=== PATIENT | female | born 1970 | race Caucasian/White ===

== ENCOUNTER 2018-03-29 10:33 | Emergency (ER) | payer MEDICAID ==
[~2018-03-29] VITALS: Ht 162.6 cm; Wt 78.6 kg
[2018-03-29 10:37] VITALS: BP 116/47
--- NOTE | 2018-03-29 10:40 | NUR ---
PT HERE FOR TEST. NORMAL PHYSICAL EXAM. PT INFORMED OF RESULTS. HCG URINE NEGATIVE. ER SECHRIST NOTIFIED.
--- NOTE | 2018-03-29 10:42 | NUR ---
Patient ambulated to bed 4 with family. RN evaluating patient at bedside.
--- NOTE | 2018-03-29 10:50 | NUR ---
Dr. Delacruz evaluating patient at bedside.
[2018-03-29 11:00] VITALS: BP 116/47
--- NOTE | 2018-03-29 11:00 | NUR ---
Patient discharged with v/s stable. Written and verbal after care instructions given and explained. Patient verbalized understanding. Ambulatory with steady gait. All questions addressed prior to discharge. Advised to follow up with PMD.
== END 2018-03-29 11:00 | disposition home or self-care (01) ==
LOC: MED 10:33
DX: Z32.02 Encounter for pregnancy test, result negative (principal); F17.210 Nicotine dependence, cigarettes, uncomplicated
CPT/HCPCS: 81025; 99282

== ENCOUNTER 2018-05-04 21:10 | Emergency (ER) | payer MEDICAID ==
[~2018-05-04] VITALS: Ht 165.1 cm; Wt 78.0 kg
[2018-05-04 21:19] VITALS: BP 139/76
[2018-05-04 22:39] LABS: BASOPHILS # (AUTO) 0.1 K/uL (0.00-0.22); BASOPHILS % (AUTO) 0.9 % (0.0-2.0); EOSINOPHILS # (AUTO) 0.6 K/uL (0-0.4); EOSINOPHILS % (AUTO) 7.8 % (0.0-4.0); HEMATOCRIT 41.9 % (36-48); HEMOGLOBIN 13.6 g/dL (12.0-16.0); LYMPHOCYTES % (AUTO) 36.7 % (20.5-51.1); MEAN CORPUSCULAR HEMOGLOBIN 29 pg (27-31); MEAN CORPUSCULAR HGB CONC 33 g/dL (33-37); MEAN CORPUSCULAR VOLUME 89.9 fL (80-94); MONOCYTES # (AUTO) 0.8 K/uL (0.8-1.0); MONOCYTES % (AUTO) 10.1 % (1.7-9.3); NEUTROPHILS # (AUTO) 3.7 K/uL (1.8-7.7); NEUTROPHILS % (AUTO) 44.5 % (42.2-75.2); PLATELET COUNT (AUTO) 293 K/uL (140-450); RED BLOOD CELL COUNT(AUTO) 4.66 MIL/uL (4.20-5.40); RED CELL DISTRIBUTION WIDTH 12.8 % (11.6-13.7); WHITE BLOOD COUNT (AUTO) 8.3 K/uL (4.8-10.8)
[2018-05-04 22:54] LABS: ANION GAP 7.3 (8-16); CARBON DIOXIDE 30.8 mmol/L (21-32); CREATININE 0.8 mg/dL (0.6-1.3); POTASSIUM 4.1 mmol/L (3.5-5.1)
[2018-05-04 22:54] LABS: BARBITURATE, URINE NEG. ng/ml (NEG <=200); BENZODIAZEPINE, URINE NEG. ng/mL (NEG <=200); CANNABINOID, URINE POS. ng/mL (NEG <=50); COCAINE, URINE NEG. ng/mL (NEG <=300); OPIATE, URINE NEG. ng/mL (NEG <=2000); PHENCYCLIDINE SCREEN,URINE NEG. ng/mL (NEG <=25)
[2018-05-04 22:58] LABS: ALBUMIN 3.3 g/dL (3.4-5.0); TOTAL BILIRUBIN 0.1 mg/dL (0.0-1.0)
[2018-05-05 01:13] VITALS: BP 109/55
== END 2018-05-05 01:12 | disposition home or self-care (01) ==
LOC: MED 21:10
DX: R07.9 Chest pain, unspecified (principal); I25.2 Old myocardial infarction; F12.10 Cannabis abuse, uncomplicated
CPT/HCPCS: 36415; 71045; 80053; 80305; 81025; 82550; 82553; 83690; 84484; 85025; 93005; 99285; Q0092

== ENCOUNTER 2018-11-17 05:55 | Emergency (ER) | payer MEDICAID ==
[~2018-11-17] VITALS: Ht 165.1 cm; Wt 81.6 kg
[2018-11-17 06:09] VITALS: BP 147/70
--- NOTE | 2018-11-17 06:10 | NUR ---
TO BED # 11 AMB, REPORT GIVEN TO CANDICE CARLSON
--- NOTE | 2018-11-17 06:10 | NUR ---
ASSUMED CARE OF PT AT THIS TIME. C/O COUGH/CONGESTION X 1 MONTH. NO RESPIRATORY DISTRESS NOTED...PT SPEAKS IN FULL SENTENCES. AAOX4 WITH EVEN AND STEADY GAIT; PATIENT STATES PAIN OF 7/10; VSS; PATIENT POSITIONED FOR COMFORT; HOB ELEVATED; BEDRAILS UP X2; BED DOWN. ER MD MADE AWARE OF PT STATUS. WILL CONTINUE TO MONITOR.
--- NOTE | 2018-11-17 06:22 | NUR ---
Dr. Lee evaluating patient at bedside.
[2018-11-17 06:30] VITALS: BP 147/70
--- NOTE | 2018-11-17 06:30 | NUR ---
Patient discharged with v/s stable. Written and verbal after care instructions given and explained. Patient alert, oriented and verbalized understanding of instructions. Ambulatory with steady gait. All questions addressed prior to discharge. ID band removed. Patient advised to follow up with PMD. Rx of CLARITIN given. Patient educated on indication of medication including possible reaction and side effects. Opportunity to ask questions provided and answered.
== END 2018-11-17 06:30 | disposition home or self-care (01) ==
LOC: MED 05:55
DX: J30.9 Allergic rhinitis, unspecified (principal); H10.10 Acute atopic conjunctivitis, unspecified eye
CPT/HCPCS: 99282

== ENCOUNTER 2019-01-15 04:05 | Emergency (ER) | payer MEDICAID ==
[~2019-01-15] VITALS: Ht 157.5 cm; Wt 75.0 kg
[2019-01-15 04:10] VITALS: BP 113/54
--- NOTE | 2019-01-15 04:10 | NUR ---
PATIENT PRESENTS ER WITH C/O COUGH AND WATERY EYES X 3 DAYS. PT IS A/O X4. PT DENIES N/V/D. NO REDNESS, SWELLING, OR WATERY EYES DURING ASSESSMENT. NO COUGH PRESENT DURING ASSESSMENT. PT HAS HX OF 2 HEART ATTACKS. PT TAKES ASPIRIN AND CLARITIN MEDICATION. PT KNA. PATIENT STATES PAIN OF 0/10 AT THIS TIME; VSS; PATIENT POSITIONED FOR COMFORT; HOB ELEVATED; BEDRAILS UP X2; BED DOWN. ER MD MADE AWARE OF PT STATUS.
--- NOTE | 2019-01-15 04:19 | NUR ---
amb to bed 2.
--- NOTE | 2019-01-15 04:45 | NUR ---
PT SITTING UP IN BED, VSS
[2019-01-15 05:30] VITALS: BP 117/89
--- NOTE | 2019-01-15 05:30 | NUR ---
Patient discharged with v/s stable. Written and verbal after care instructions given and explained. Patient alert, oriented and verbalized understanding of instructions. Ambulatory with steady gait. All questions addressed prior to discharge. ID band removed. Patient advised to follow up with PMD. Rx of GUAIATUSSIN AND AZITHROMYCIN WAS given. Patient educated on indication of medication including possible reaction and side effects. Opportunity to ask questions provided and answered.
== END 2019-01-15 05:30 | disposition home or self-care (01) ==
LOC: MED 04:05
DX: J06.9 Acute upper respiratory infection, unspecified (principal)
CPT/HCPCS: 71045; 99283; Q0092

== ENCOUNTER 2019-03-15 23:56 | Emergency (ER) | payer MEDICAID ==
[~2019-03-15] VITALS: Ht 162.6 cm; Wt 74.8 kg
[2019-03-15 23:59] VITALS: BP 122/78
--- NOTE | 2019-03-15 23:59 | NUR ---
PT TAKEN TO BED 9.
--- NOTE | 2019-03-16 00:10 | NUR ---
PT BIB SELF C/O RIGHT ARM PAIN X3 DAYS. PT STATES SHE HAS BEEN CARRYING HER DOG AROUND AND THINGS SHE "PULLED A MUSCLE". PT STATES 10/10 ACHING PAIN, NON RADIATING. PT DENIES N/V/D, CP OR SOB. PT ACTING APPROPRIATLY. PT STATES SHE HAS HAD 5 PREVIOUS HEART ATTACKS HER LAST ONE BEING 1 YEAR AGO FROM USING DRUGS. DENIES DRUG OR ALCOHOL USE AT THIS TIME. PT IN GOWN, IN BED; BED IN LOWER LOCKED POSITION. PENDING ER MD LAW. WILL CONTINUE TO MONITOR. PMH: HEART ATTACK RX: ASPIRIN
[2019-03-16] MEDS ORDERED: KETOROLAC 60 MG/2 ML VIAL IM ONE (00:55)
--- NOTE | 2019-03-16 01:42 | NUR ---
Patient discharged with v/s stable. Patient is asking to go home, states pain has decreased to 0/10. Patient acting appropriatly. Written and verbal after care instructions given and explained. Patient alert, oriented and verbalized understanding of instructions. Ambulatory with steady gait. All questions addressed prior to discharge. ID band removed. Patient advised to follow up with PMD. Rx of Tramadol Hydrochloride, and Motrin given. Patient educated on indication of medication including possible reaction and side effects. Opportunity to ask questions provided and answered.
[2019-03-16 01:56] VITALS: BP 128/83
== END 2019-03-16 01:42 | disposition home or self-care (01) ==
LOC: MED 23:56
DX: S46.911A Strain of unspecified muscle, fascia and tendon at shoulder and upper arm level, right arm, initial encounter (principal); M54.42 Lumbago with sciatica, left side; K08.89 Other specified disorders of teeth and supporting structures; I25.2 Old myocardial infarction; X58.XXXA Exposure to other specified factors, initial encounter; Y93.89 Activity, other specified; Y92.89 Other specified places as the place of occurrence of the external cause; Y99.8 Other external cause status
CPT/HCPCS: 96372; 99283; J1885; 81025

== ENCOUNTER 2019-10-15 03:12 | Emergency (ER) | payer MEDICAID ==
[~2019-10-15] VITALS: Ht 160 cm; Wt 81.6 kg
--- NOTE | 2019-10-15 03:18 | NUR ---
PT TAKEN TO BED 7
--- NOTE | 2019-10-15 03:22 | NUR ---
PT ARRIVED TO ED C/O RIGHT SIDED TOOTHACHE X 2 DAYS. RATES PAIN 6/10. RIGHT SIDE OF BACK OF THE MOUTH SHOWS SWELLING AND REDNESS NOTED. NO DRIANGE. VSS. TAKEN OTC MED OF TYLENOL. PMH: SHIRA TAVERAS.
[2019-10-15 03:23] VITALS: BP 117/71
[2019-10-15 03:32] VITALS: BP 117/71
--- NOTE | 2019-10-15 03:32 | NUR ---
Patient discharged with v/s stable. Written and verbal after care instructions given and explained. Patient alert, oriented and verbalized understanding of instructions. Ambulatory with steady gait. All questions addressed prior to discharge. ID band removed. Patient advised to follow up with PMD. Rx of AUGEMNTIN AND IBUPROFEN given. Patient educated on indication of medication including possible reaction and side effects. Opportunity to ask questions provided and answered.
== END 2019-10-15 03:32 | disposition home or self-care (01) ==
LOC: MED 03:12
DX: K04.7 Periapical abscess without sinus (principal)
CPT/HCPCS: 99283